=== PATIENT | male | born 1945 | race Caucasian/White ===

== ENCOUNTER 2017-03-03 09:34 | Outpatient (CLI) | payer MEDICARE, OTHER ==
[2017-03-03 18:37] LABS: BASOPHILS % (AUTO) 0.8 %; EOSINOPHILS # (AUTO) 0.2 10^3/uL (0.0-0.7); EOSINOPHILS % (AUTO) 3.1 %; HGB - HEMOGLOBIN 14.2 g/dL (14.0-18.0); LYMPHOCYTES # (AUTO) 1.6 10^3/uL (1.5-3.5); LYMPHOCYTES % (AUTO) 27.2 %; MEAN CORPUSCULAR HEMOGLOBIN 33.2 pg (27.0-31.0); MEAN CORPUSCULAR HGB CONC 33.9 g/dL (32.0-36.0); MEAN CORPUSCULAR VOLUME 97.9 fL (80.0-94.0); MEAN PLATELET VOLUME 9.7 fL (7.4-11.4); MONOCYTES # (AUTO) 0.4 10^3/uL (0.0-1.0); MONOCYTES % (AUTO) 7.2 %; NEUTROPHILS # (AUTO) 3.7 10^3/uL (1.5-6.6); NEUTROPHILS % (AUTO) 61.7 %; NUCLEATED RED BLOOD CELLS AUTO 0.1 /100WBC; RED BLOOD COUNT 4.29 10^6/uL (4.70-6.10)
[2017-03-03 19:05] LABS: ALBUMIN/GLOBULIN RATIO 1.4 (1.0-2.2); BILIRUBIN,TOTAL 0.7 mg/dL (0.2-1.0); BUN - BLOOD UREA NITROGEN 19 mg/dL (6-20); CALCIUM 9.3 mg/dL (8.5-10.3); CARBON DIOXIDE - CO2 27 mmol/L (21-32); CHLORIDE 108 mmol/L (101-111); CHOL/HDL RATIO 3.5 (<5.0); CHOLESTEROL 190 mg/dL; CREATININE 0.9 mg/dL (0.6-1.2); GFR - MDRD 84 (>89); GLUCOSE 112 mg/dL (70-100); HDL CHOLESTEROL 55 mg/dL; LDL/HDL RATIO 2.2 (<3.6); POTASSIUM 4.3 mmol/L (3.5-5.0); SODIUM 141 mmol/L (135-145); TOTAL PROTEIN 7.3 g/dL (6.7-8.2); TRIGLYCERIDES 77 mg/dL; VLDL CHOLESTEROL 15 mg/dL
== END 2017-03-03 09:35 | disposition home or self-care (01) ==
LOC: LAB.F 09:34
PROVIDERS: ATTEND Physician Assistant Medical
DX: I10 Essential (primary) hypertension (principal); Z12.5 Encounter for screening for malignant neoplasm of prostate; E55.9 Vitamin D deficiency, unspecified; E78.5 Hyperlipidemia, unspecified; K59.00 Constipation, unspecified; R13.10 Dysphagia, unspecified; R49.9 Unspecified voice and resonance disorder
CPT/HCPCS: 36415; 80053; 80061; 82306; 84443; 85025; G0103; 84153

== ENCOUNTER 2017-05-27 10:07 | Outpatient (CLI) | payer MEDICARE, OTHER ==
--- NOTE | 2017-05-27 10:48 | XRAY Report ---
MODIFIED BARIUM SWALLOW: 05/27/2017 CLINICAL INDICATION: Dysphagia. FINDINGS: Various consistencies of barium were prepared and administered in conjunction with Speech Pathology. There was no evidence of penetration or aspiration with any administered consistency. Pl ease also refer to full report from Speech Pathology. IMPRESSION: NO EVIDENCE OF PENETRATION OR ASPIRATION. FLUOROSCOPY TIME: 37 seconds; 1 spot image obtained (cinefluoroscopy recorded). JOB #: [id number] EXT JOB #:[id number]
== END 2017-05-27 10:08 | disposition home or self-care (01) ==
LOC: DI 10:07
PROVIDERS: ATTEND Otolaryngology
DX: K21.9 Gastro-esophageal reflux disease without esophagitis (principal); R13.10 Dysphagia, unspecified
CPT/HCPCS: 74230; 92611; G8996; G8997; G8998

== ENCOUNTER 2018-02-07 10:14 | Outpatient (CLI) | payer MEDICARE, OTHER ==
--- NOTE | 2018-02-07 11:50 | XRAY Report ---
Procedure Date: 02/07/2018 Accession Number: [id number] / [id number] Procedure: XR - Ankle 3 View RT CPT Code: FULL RESULT: EXAM: Ankle 3 View RT DATE: 02/07/2018 10:48 AM CLINICAL HISTORY: ANKLE JOINT PAIN,RIGHT COMPARISON: None. TECHNIQUE: 3 views. FINDINGS: Bones: Normal. No fractures or bone lesions. Joints: Mild degenerative changes in the mortise, with small osteophytes. No effusion. Soft Tissues: Normal. No soft tissue swelling. IMPRESSION: Mild degenerative changes. RADIA
== END 2018-02-07 10:15 | disposition home or self-care (01) ==
LOC: DI 10:14
PROVIDERS: ATTEND Internal Medicine
DX: M19.071 Primary osteoarthritis, right ankle and foot (principal)

== ENCOUNTER 2018-04-26 07:30 | Outpatient (CLI) | payer MEDICARE, OTHER ==
[2018-04-26 10:42] LABS: ALBUMIN/GLOBULIN RATIO 1.3 (1.0-2.2); BILIRUBIN,TOTAL 0.7 mg/dL (0.2-1.0); CALCIUM 8.8 mg/dL (8.5-10.3); CREATININE 0.8 mg/dL (0.6-1.2); TOTAL PROTEIN 7.1 g/dL (6.7-8.2)
== END 2018-04-26 07:31 | disposition home or self-care (01) ==
LOC: LAB.F 07:30
PROVIDERS: ATTEND Physician Assistant Medical
DX: I10 Essential (primary) hypertension (principal); Z12.5 Encounter for screening for malignant neoplasm of prostate
CPT/HCPCS: 36415; 80053; G0103; 84153

== ENCOUNTER 2019-08-16 08:07 | Outpatient (CLI) | payer MEDICARE, OTHER ==
[2019-08-16 10:09] LABS: BASOPHILS % (AUTO) 0.6 %; EOSINOPHILS # (AUTO) 0.3 10^3/uL (0.0-0.7); EOSINOPHILS % (AUTO) 4.6 %; HGB - HEMOGLOBIN 14.6 g/dL (14.0-18.0); LYMPHOCYTES # (AUTO) 1.9 10^3/uL (1.5-3.5); LYMPHOCYTES % (AUTO) 29.1 %; MEAN CORPUSCULAR HEMOGLOBIN 32.7 pg (27.0-31.0); MEAN CORPUSCULAR VOLUME 96.2 fL (80.0-94.0); MEAN PLATELET VOLUME 10.9 fL (7.4-11.4); MONOCYTES # (AUTO) 0.5 10^3/uL (0.0-1.0); MONOCYTES % (AUTO) 8.3 %; NEUTROPHILS # (AUTO) 3.7 10^3/uL (1.5-6.6); NEUTROPHILS % (AUTO) 57.2 %; PLT - PLATELET COUNT 271 10^3/uL (130-450); RED BLOOD COUNT 4.46 10^6/uL (4.70-6.10); RED CELL DISTRIBUTION WIDTH 13.4 % (12.0-15.0); WHITE BLOOD COUNT 6.5 x10^3/uL (4.8-10.8)
[2019-08-16 10:26] LABS: ALBUMIN 4.1 g/dL (3.2-5.5); ALBUMIN/GLOBULIN RATIO 1.2 (1.0-2.2); BILIRUBIN,TOTAL 0.7 mg/dL (0.2-1.0); CREATININE 0.9 mg/dL (0.6-1.2); TOTAL PROTEIN 7.5 g/dL (6.7-8.2)
== END 2019-08-16 08:08 | disposition home or self-care (01) ==
LOC: LAB.S 08:07
PROVIDERS: ATTEND Physician Assistant Medical
DX: Z51.81 Encounter for therapeutic drug level monitoring (principal); Z12.5 Encounter for screening for malignant neoplasm of prostate; Z79.899 Other long term (current) drug therapy
CPT/HCPCS: 36415; 80053; 85025; G0103; 84153

== ENCOUNTER 2019-08-28 08:04 | Outpatient (CLI) | payer MEDICARE, OTHER ==
[2019-08-28 19:30] LABS: HB2 TOTAL 13.7 g/dL; HEMOGLOBIN A1C 0.56 g/dL; HEMOGLOBIN A1C % 5.9 % (4.6-6.2)
== END 2019-08-28 08:05 | disposition home or self-care (01) ==
LOC: LAB.S 08:04
PROVIDERS: ATTEND Physician Assistant Medical
DX: R73.01 Impaired fasting glucose (principal)
CPT/HCPCS: 36415; 83036

== ENCOUNTER 2020-03-28 08:46 | Outpatient (CLI) | payer MEDICARE, OTHER ==
[2020-03-28 09:58] VITALS: BP 152/90
--- NOTE | 2020-03-28 09:58 | SLEEP CARE CONSULTATION ---
Information from patient questionnaire entered by Socorro Leavitt. I have reviewed and concur with the information entered by Socorro Leavitt. This document represents the service I personally performed and the decisions made by , Emily Singh ARNP. History of Present Illness Service Date and Time: 03/28/2020 0846 Reason for Visit: New patient, Previously diagnosed sleep apnea, sleep apnea on CPAP therapy Chief Complaint: reports: Other (Sleep apnea). denies: Insomnia, Unrefreshed sleep, Snoring, Excessive daytime sleepiness, Observed pauses in breathing, Fatigue, Frequent awakenings at night Date of Onset: 20 years +/- Usual bedtime: 10 pm Time it takes to fall asleep: 30 mins Snores at night: Yes (before or without CPAP) Observed to quit breathing while asleep: Yes Sleeps alone due to snoring: Yes Reasons for waking at night: denies: Choking, Snoring, Gasping for air Toss, Turn, or Twitch while sleeping: Yes Recalls having dreams: Yes Usually gets out of bed at: 6-6:30 am Feels refreshed in the morning: Yes Morning headache: No Sleepy or fatigued during the day: No Ever fallen asleep while driving: No Takes day naps: No Dreams during day naps: No Prior sleep studies: Yes Year and Where: 2004 - [facility] Additional HPI information: SHIMON PALACIOS was diagnosed to have very severe, AHI 84, obstructive sleep apnea- hypopnea syndrome and comes in today to establish care and for monitoring of his CPAP therapy. He has been on CPAP therapy since 2004 and does not sleep without it. He has had good improvement of his unrefreshed sleep and frequent night awakenings with use of the CPAP. - Parasomnia Symptoms Ever been unable to move upon waking from sleep: No Walks in sleep: No Talks in sleep: Yes Ever acted out dreams in sleep: No Ever felt weak in the knees when startled or emotional: No Bothered by creepy, crawly, restless sensations in legs: No Problems with memory or concentration: No CPAP Compliance Data - Data Reviewed with Patient Average duration of nightly device use: 7.7 Compliance rate %: 97.2 (180 days) Current pressure setting (cmH2O): 5-20 Humidity settin Average residual AHI: 6.1 Central apnea: 0.2 Obstructive apnea: 0.7 Average large leak: 45 min 42 sec Compliance data discussion: [employer], getting supplies as needed using full face Respironics has a spare mask, old mask last changed mask a week ago Subjective Patient concerns: denies: aerophagia, mask discomfort, air blowing in eyes, mask leak noise, condensation in mask/hose, nasal congestion, dry mouth, nose, throat, epistaxis, other Observed to snore while using device: No Current pressure setting perceived as: comfortable On therapy, patient: reports: sleeping better, awakening more refreshed, being more awake and alert during the day, more rested overall. denies: drowsiness while driving Initial [place] Sleepiness Scale score: 3 (in 2019) Past Medical History Past Medical History: reports: Hypertension, Arthritis, Impotence. denies: Congestive Heart Failure, Diabetes, Coronary Heart Disease, Gout, Arrythmia, Hypothyroidism, Anemia, Anxiety, Depression, Mood disorder, GERD, Attention deficit Social History The patient's occupation is a Retired. Patient is and lives in [place]. Have you smoked in the past 12 months: No Alcohol use: Yes Alcohol amount and frequency: 1-2 drinks a week Caffeine use: Yes Caffeine amount and frequency: 2-3 cups a day Family History Family history of sleep disordered breathing: Yes (mother and father) Family Hx Sleep Apnea: Mother: Snoring, Father: Snoring Allergies and Home Medications Drug allergies reviewed: Yes (NKDA) Home medication list reviewed: Yes Allergy and home medication list: tamsulosin HCL 0.4 mg capsule Lisinopril 20 mg tab Fiber capsules 3/day Toviaz ER 4 mg tab for prostate Metronidazole topical cream vitamin B1, B12, D3 Review of Systems Weight loss over past 5 years: 10 +/- Cardiovascular: reports: high blood pressure, leg or foot swelling. denies: palpitations, chest pain, irregular heart rate or pulse Respiratory: denies: shortness of breath, chronic cough Gastrointestinal: denies: heartburn, difficulty swallowing Urinary: reports: impotence Neurological: denies: headaches, seizure, head trauma, gait or balance problems Psychiatric: denies: anxiety, depression Ear/Nose/Throat: reports: nasal congestion, sinus problems, tonsillectomy. denies: nose bleeds, dry mouth/throat, hoarseness, injury to nose, wisdom teeth removed Endocrine: denies: thyroid disease Musculoskeletal: reports: joint pain, back pain Immunologic: reports: sneezing, allergies to food or environment (trees, grasses, pollens) Physical Exam Blood Pressure: 152/90 (usually elevated at doctor's office) Cuff size: long Heart Rate: 61 O2 Saturation: 97 Height: 5 ft 6.5 in Weight: 216 lb Body Mass Index: 34.3 BMI Classification: Obese HEENT: No craniofacial malformation Nostrils: patent to airflow Turbinates: normal Septum: midline Mouth and throat: narrow oropharynx Soft palate: normal Hard palate: normal Uvula: normal Uvula visualization: 50% Mallampati Class II Tongue: normal in size Tonsils: absent bilaterally Chin and jaw: normal size and position Neck: normal w/o lymphadenopathy or thyromegaly Heart: regular rate and rhythm Impression and Plan 1. Obstructive Sleep Apnea-Hypopnea Syndrome, very severe, with good treatment compliance and fair apnea control, but has elevated residual AHI. I discussed with patient that his AHI was elevated and we will adjust pressure to see if we can improve apnea control and have him follow up in a month and he agreed to plan. On CPAP therapy, there is improved sleep quality and feels more rested overall. Patient's apnea severity and rationale for treatment to reduce apnea, improve sleep quality and reduce cardiovascular and cerebrovascular events was reviewed. I also reviewed the benefit of consistent device use of CPAP for hypertension. Change auto CPAP pressure to 6-10 cm H2O. Notify me if snoring with the mask or feeling that the pressure is too much or too little. Attempt to lose weight. Return for follow-up in 1 month, or sooner if concerns arise. Visit Type: In Office Time Spent with Patient (minutes): 31 Provider Statement: I spent 100% of the Face to Face Visit with the patient with greater than 50% spent counseling the patient and coordination of care.
== END 2020-03-28 08:47 | disposition home or self-care (01) ==
LOC: SC 08:46
PROVIDERS: ATTEND Nurse Practitioner Family
DX: G47.33 Obstructive sleep apnea (adult) (pediatric) (principal); E66.9 Obesity, unspecified; Z68.34 Body mass index [BMI] 34.0-34.9, adult
CPT/HCPCS: 99204; G0463; 99212

== ENCOUNTER 2020-04-26 09:17 | Outpatient (CLI) | payer MEDICARE, OTHER | END 2020-04-26 09:18 | disposition home or self-care (01) | LOC: SC 09:17 | PROVIDERS: ATTEND Nurse Practitioner Family | DX: Z53.9 Procedure and treatment not carried out, unspecified reason (principal) ==

== ENCOUNTER 2020-05-09 09:19 | Outpatient (CLI) | payer MEDICARE, OTHER ==
--- NOTE | 2020-05-09 09:49 | SLEEP CARE CONSULTATION ---
Information from patient questionnaire entered by Socorro Leavitt. I have reviewed and concur with the information entered by Socorro Leavitt. This document represents the service I personally performed and the decisions made by , Emily Singh ARNP. History of Present Illness Service Date and Time: 05/09/2020918 Previous diagnosis: Very Severe, Obstructive Sleep Apnea-Hypopnea Syndrome AHI: 84 (in 2004) Reason for follow up: first compliance after device update Equipment type: CPAP Equipment obtained from: [employer] (getting supplies as needed) Mask style: Full face Mask brand: Respironics Backup mask available: Yes (old mask) Last cushion change: last week Prior sleep studies: Yes Year and Where: 2004 - [facility] HPI additional information: SHIMON PALACIOS was diagnosed to have very severe, AHI 84, obstructive sleep apnea- hypopnea syndrome and returned today for CPAP therapy first compliance after updating device follow-up. Sleep Study - Results Prior sleep studies: Yes Year and Where: 2004 [facility] CPAP Compliance Data - Data Reviewed with Patient Average duration of nightly device use: 8.5 Compliance rate %: 100 Current pressure setting (cmH2O): 4-20 Humidity settin Heated hose settin Average residual AHI: 4.7 Central apnea: 0.3 Obstructive apnea: 0.5 Average large leak: 17 min 6 sec Subjective Patient concerns: denies: aerophagia, mask discomfort, air blowing in eyes, mask leak noise, condensation in mask/hose, nasal congestion, dry mouth, nose, throat, epistaxis, other Observed to snore while using device: No Current pressure setting perceived as: comfortable On therapy, patient: reports: sleeping better, awakening more refreshed, being more awake and alert during the day, more rested overall. denies: drowsiness while driving Initial [place] Sleepiness Scale score: 3 (in 2019) Current [place] Sleepiness Scale score: 3 Allergies and Home Medications Drug allergies reviewed: Yes (NKDA) Home medication list reviewed: Yes (none) Review of Systems Review of systems same as previous: Yes (no changes) Physical Exam Heart Rate: 68 O2 Saturation: 98 Height: 5 ft 6.5 in Weight: 216 lb Body Mass Index: 34.3 BMI Classification: Obese Impression and Plan 1. Obstructive Sleep Apnea-Hypopnea Syndrome, very severe, with great treatment compliance and fair apnea control. On CPAP therapy, the patient has better sleep quality and is more rested overall. Patient has no complaints. He needs a compliance letter to [facility] for continuation of his supplies. I will adjust his pressure to 7-10 cm H2O since this is the range of pressures used per his report. Patient's apnea severity and rationale for treatment to reduce apnea, improve sleep quality and reduce cardiovascular and cerebrovascular events was reviewed. I also reviewed the benefit of consistent device use of CPAP for his hypertension. * Change autoCPAP pressure to 7-10 cmH2O * Notify me if snoring with mask or feeling that the pressure is too much or too little * Attempt to lose weight * Call this office if any problems using CPAP * Return for follow up in 1 year, or sooner if concerns arise Counseling Topics: Weight loss health impact Visit Type: In Office Time Spent with Patient (minutes): 20 Provider Statement: I spent 100% of the Face to Face Visit with the patient with greater than 50% spent counseling the patient and coordination of care.
== END 2020-05-09 09:20 | disposition home or self-care (01) ==
LOC: SC 09:19
PROVIDERS: ATTEND Nurse Practitioner Family
DX: G47.33 Obstructive sleep apnea (adult) (pediatric) (principal); E66.9 Obesity, unspecified; Z68.34 Body mass index [BMI] 34.0-34.9, adult
CPT/HCPCS: 99213; G0463; 99212

== ENCOUNTER 2020-09-26 07:56 | Outpatient (CLI) | payer MEDICARE, OTHER ==
[2020-09-26 14:59] LABS: HEMOGLOBIN A1c% 5.7 % (4.27-6.07)
[2020-09-26 15:02] LABS: BASOPHILS # (AUTO) 0.1 10^3/uL (0.0-0.1); BASOPHILS % (AUTO) 0.7 %; EOSINOPHILS # (AUTO) 0.3 10^3/uL (0.0-0.7); HGB - HEMOGLOBIN 14.6 g/dL (14.0-18.0); LYMPHOCYTES # (AUTO) 1.8 10^3/uL (1.5-3.5); LYMPHOCYTES % (AUTO) 26.5 %; MEAN CORPUSCULAR HGB CONC 33.3 g/dL (32.0-36.0); MEAN CORPUSCULAR VOLUME 98.9 fL (80.0-94.0); MEAN PLATELET VOLUME 11.8 fL (7.4-11.4); MONOCYTES # (AUTO) 0.6 10^3/uL (0.0-1.0); MONOCYTES % (AUTO) 8.3 %; NEUTROPHILS % (AUTO) 59.2 %; PLT - PLATELET COUNT 236 10^3/uL (130-450); RED BLOOD COUNT 4.43 10^6/uL (4.70-6.10); RED CELL DISTRIBUTION WIDTH 13.1 % (12.0-15.0); WHITE BLOOD COUNT 6.8 x10^3/uL (4.8-10.8)
[2020-09-26 15:34] LABS: ALBUMIN 4.2 g/dL (3.2-5.5); ALBUMIN/GLOBULIN RATIO 1.4 (1.0-2.2); ALKALINE PHOSPHATASE 64 IU/L (42-121); ALT ALANINE AMINOTRANSFERASE 21 IU/L (10-60); AST ASPARTATE AMINOTRANSFERASE 21 IU/L (10-42); BUN - BLOOD UREA NITROGEN 19 mg/dL (6-20); CALCIUM 9.3 mg/dL (8.5-10.3); CARBON DIOXIDE - CO2 25 mmol/L (21-32); CHLORIDE 106 mmol/L (101-111); CHOL/HDL RATIO 4.5 (<5.0); CHOLESTEROL 204 mg/dL; CREATININE 0.8 mg/dL (0.6-1.2); GLUCOSE 118 mg/dL (70-100); HDL CHOLESTEROL 45 mg/dL; LDL CHOLESTEROL,CALCULATED 140 mg/dL; LDL/HDL RATIO 3.1 (<3.6); TOTAL PROTEIN 7.3 g/dL (6.7-8.2); VLDL CHOLESTEROL 19 mg/dL
[2020-09-26 15:35] LABS: CREATININE,URINE 208.7 mg/dL; MICROALBUM/CREATININE RATIO,UR 3.4 ug/mg (<30.0); MICROALBUMIN,URINE 0.7 mg/dL (0-300.0)
== END 2020-09-26 07:57 | disposition home or self-care (01) ==
LOC: LAB 07:56
PROVIDERS: ATTEND Physician Assistant
DX: Z00.00 Encounter for general adult medical examination without abnormal findings (principal); Z12.5 Encounter for screening for malignant neoplasm of prostate; I10 Essential (primary) hypertension; R73.01 Impaired fasting glucose; R42 Dizziness and giddiness; G47.33 Obstructive sleep apnea (adult) (pediatric); E66.3 Overweight
CPT/HCPCS: 36415; 80053; 80061; 82043; 82570; 83036; 84443; 85025; G0103; 83721; 84153

== ENCOUNTER 2021-05-13 09:44 | Outpatient (CLI) | payer MEDICARE, OTHER ==
--- NOTE | 2021-05-13 10:30 | SLEEP CARE CONSULTATION ---
Information from patient questionnaire entered by Amanda Gerber. I have reviewed and concur with the information entered by Amanda Gerber. This document represents the service I personally performed and the decisions made by me, Emily Singh ARNP. History of Present Illness Service Date and Time: 05/13/2021 0944 Previous diagnosis: Very Severe, Obstructive Sleep Apnea-Hypopnea Syndrome AHI: 84 (in 2004) Reason for follow up: annual Equipment type: CPAP Equipment obtained from: [employer] (getting supplies as needed) Mask style: Full face Backup mask available: Yes (old mask) Last cushion change: 2 weeks ago Prior sleep studies: Yes Year and Where: 2004 [facility] Type of Sleep Study: Polysomnography HPI additional information: SHIMON PALACIOS was diagnosed to have very severe, AHI 84, obstructive sleep apnea- hypopnea syndrome and returned today for CPAP therapy annual follow-up. Sleep Study - Results Prior sleep studies: Yes Year and Where: 2004 [facility] CPAP Compliance Data - Data Reviewed with Patient Average duration of nightly device use: 7 hours 42 minutes Compliance rate %: 98.9 (data range 10/24/20-04/21/21) Current pressure setting (cmH2O): 4-11 Humidity settin Heated hose settin Average residual AHI: 10.4 Average large leak: 1 hour 8 minutes 43 seconds Subjective Missed days of use due to: reports: other (he is using old Remstar due to recall that is set to 12-13 cmH2O (maybe)) Patient concerns: reports: dry mouth, nose, throat, other (slight cough for last 6 months productive with some clear phlegm). denies: aerophagia, mask discomfort, air blowing in eyes, mask leak noise, condensation in mask/hose, nasal congestion, epistaxis Observed to snore while using device: No Current pressure setting perceived as: comfortable On therapy, patient: reports: sleeping better, awakening more refreshed, being more awake and alert during the day, more rested overall. denies: drowsiness while driving Initial [place] Sleepiness Scale score: 3 (in 2019) Current [place] Sleepiness Scale score: 2 Allergies and Home Medications Home medication list reviewed: Yes (no changes) Review of Systems Review of systems same as previous: Yes (no changes) Physical Exam Heart Rate: 68 O2 Saturation: 97 Height: 5 ft 6.5 in Weight: 211 lb Body Mass Index: 33.5 BMI Classification: Obese Impression and Plan 1. Obstructive Sleep Apnea-Hypopnea Syndrome, very severe, with good treatment compliance and fair apnea control. On CPAP therapy, the patient has better sleep quality and is more rested overall. Patient has a DreamStation that he has used an ozone millstone cleaner on. He states in the last 6 months he has had a cough that will not go away for which she has clear sputum. He switched to an older device that is a REMstar that he has never used the ozone millstone cleaner on because he felt safer in its use. He will continue to use this until he gets a new device. He thinks the device might be set to a 12-13 cmH2O but we were unable to get any download from this device since it has a credit card type memory card. Patient has already registered their device for the recall. Patient denies any black particles seen in machine or hoses, any unusual odors coming from device. Patient informed that they may use an inline CPAP filter that they can obtain online to reduce chance of any particles being inhaled or ingested. We discussed thoroughly the health risks of not using the CPAP versus continuing use with the filter in place. If patient is not able to sleep due to waking up choking, gasping for air or other respiratory distress that they may decide to continue using it until it is either replaced or repaired. Patient has an older device that they are now using until they get a new device to replace the Dreamstation. Patient was encouraged to lose weight for their overall health and to reduce apneas. Patient still concerned about the cough that has not changed since starting his use of the older CPAP. I encouraged him to follow-up with his PCP to evaluate this cough. Patient voiced understanding and agreement with plan. Patient's apnea severity and rationale for treatment to reduce apnea, improve sleep quality and reduce cardiovascular and cerebrovascular events was reviewed. I also reviewed the benefit of consistent device use of CPAP for hypertension. * Continue auto CPAP pressure at 4-11 cmH2O * Patient to follow up with PCP for productive cough * Notify me if snoring with mask or feeling that the pressure is too much or too little * Attempt to lose weight * Call this office if any problems using CPAP * Return for follow up in 1 year, or sooner if concerns arise Counseling Topics: Spare mask, Weight loss health impact Visit Type: In Office Time Spent with Patient (minutes): 24 Provider Statement: I spent 100% of the Face to Face Visit with the patient with greater than 50% spent counseling the patient and coordination of care.
== END 2021-05-13 09:45 | disposition home or self-care (01) ==
LOC: SC 09:44
PROVIDERS: ATTEND Nurse Practitioner Family
DX: G47.33 Obstructive sleep apnea (adult) (pediatric) (principal); E66.9 Obesity, unspecified; Z68.33 Body mass index [BMI] 33.0-33.9, adult
CPT/HCPCS: 99213; G0463; 99212

== ENCOUNTER 2021-09-25 07:47 | Outpatient (CLI) | payer MEDICARE, OTHER ==
[2021-09-25 14:52] LABS: BASOPHILS # (AUTO) 0.1 10^3/uL (0.0-0.1); BASOPHILS % (AUTO) 0.8 %; EOSINOPHILS # (AUTO) 0.3 10^3/uL (0.0-0.7); EOSINOPHILS % (AUTO) 5.1 %; HCT - HEMATOCRIT 43.3 % (42.0-52.0); HGB - HEMOGLOBIN 14.7 g/dL (14.0-18.0); LYMPHOCYTES % (AUTO) 33.1 %; MEAN CORPUSCULAR HEMOGLOBIN 33.3 pg (27.0-31.0); MEAN CORPUSCULAR HGB CONC 33.9 g/dL (32.0-36.0); MEAN CORPUSCULAR VOLUME 98.2 fL (80.0-94.0); MONOCYTES # (AUTO) 0.5 10^3/uL (0.0-1.0); MONOCYTES % (AUTO) 8.6 %; NEUTROPHILS # (AUTO) 3.1 10^3/uL (1.5-6.6); NEUTROPHILS % (AUTO) 52.2 %; PLT - PLATELET COUNT 245 10^3/uL (130-450); RED BLOOD COUNT 4.41 10^6/uL (4.70-6.10); WHITE BLOOD COUNT 5.9 x10^3/uL (4.8-10.8)
[2021-09-25 15:53] LABS: ALBUMIN/GLOBULIN RATIO 1.2 (1.0-2.2); ALKALINE PHOSPHATASE 67 IU/L (42-121); ALT ALANINE AMINOTRANSFERASE 29 IU/L (10-60); AST ASPARTATE AMINOTRANSFERASE 21 IU/L (10-42); BILIRUBIN,TOTAL 0.7 mg/dL (0.2-1.0); BUN - BLOOD UREA NITROGEN 22 mg/dL (6-20); CARBON DIOXIDE - CO2 23 mmol/L (21-32); CHLORIDE 108 mmol/L (101-111); CHOL/HDL RATIO 4.4 (<5.0); CHOLESTEROL 199 mg/dL; CREATININE 0.9 mg/dL (0.6-1.2); GFR - MDRD 83 (>89); GLUCOSE 118 mg/dL (70-100); HDL CHOLESTEROL 45 mg/dL; LDL CHOLESTEROL,CALCULATED 133 mg/dL; POTASSIUM 4.5 mmol/L (3.5-5.0); SODIUM 139 mmol/L (135-145); TOTAL PROTEIN 7.4 g/dL (6.7-8.2); TRIGLYCERIDES 106 mg/dL; VLDL CHOLESTEROL 21 mg/dL
== END 2021-09-25 07:48 | disposition home or self-care (01) ==
LOC: LAB.S 07:47
PROVIDERS: ATTEND Internal Medicine
DX: I10 Essential (primary) hypertension (principal); Z12.5 Encounter for screening for malignant neoplasm of prostate
CPT/HCPCS: 36415; 80053; 80061; 85025; G0103; 83721; 84153

== ENCOUNTER 2022-03-02 15:29 | Outpatient (CLI) | payer MEDICARE, OTHER ==
--- NOTE | 2022-03-02 17:18 | XRAY Report ---
PROCEDURE: Lumbar Spine 2 View INDICATIONS: BACK PAIN TECHNIQUE: 2 views of the lumbar spine were acquired. COMPARISON: None. FINDINGS: Bones: There appear to be 6 nonrib-bearing lumbar-type vertebral bodies present. For the purposes of this exam the most superior nonrib-bearing lumbar-type vertebral body is referred to as L1 and the mo st inferior is referred to as L6. Potentially the most superior nonrib-bearing lumbar-type vertebral body could have hypoplastic ribs. This could be further evaluated with CT if indicated. Mild left convexity curvature centered at L2-L3. Minimal multilevel listhesis, likely degenerative. T here is moderate-severe multilevel degenerative change present with disc height loss, endplate spurri ng, and facet arthropathy. Facet degenerative changes are most prevalent at the lower lumbar spine. N o vertebral body compression fractures. No suspicious bony lesions. Soft tissues: Overlying bowel gas pattern is normal. Vascular calcifications are present. IMPRESSION: 1. No acute lumbar spine fracture visualized radiographically. MRI could be obtained if clinically in dicated. 2. 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 3. Possible 6 nonrib-bearing lumbar-type vertebral bodies versus hypoplastic ribs at T12 which are no t easily visible. Careful attention to lumbar numbering is recommended if operative intervention is p lanned. CT of the lumbar spine could be helpful for clarification of spine numbering. Reviewed by: Paulo Lua MD on 03/02/2022 5:16 PM PDT Approved by: Paulo Lua MD on 03/02/2022 5:16 PM PDT Station ID: [id number]
== END 2022-03-02 15:30 | disposition home or self-care (01) ==
LOC: DI 15:29
PROVIDERS: ATTEND Internal Medicine
DX: M47.816 Spondylosis without myelopathy or radiculopathy, lumbar region (principal); M51.36 Other intervertebral disc degeneration, lumbar region

== ENCOUNTER 2022-06-17 11:07 | Outpatient (CLI) | payer MEDICARE, OTHER ==
[2022-06-17 11:34] VITALS: BP 138/82
--- NOTE | 2022-06-17 11:34 | SLEEP CARE CONSULTATION ---
Information from patient questionnaire entered by Taurus Beverly. I have reviewed and concur with the information entered by Taurus Beverly. This document represents the service I personally performed and the decisions made by me, Emily Singh ARNP. History of Present Illness Service Date and Time: 06/17/2022 1107 Previous diagnosis: Very Severe, Obstructive Sleep Apnea-Hypopnea Syndrome AHI: 84 (in 2004) Reason for follow up: annual (LAST SEEN 05/2021) Equipment type: CPAP (DREAMSTATION 2) Equipment obtained from: [employer] (getting supplies as needed) Mask style: Full face Backup mask available: Yes (old mask) Last cushion change: last week Prior sleep studies: Yes Year and Where: [address] [place] [address] Type of Sleep Study: Polysomnography HPI additional information: SHIMON PALACIOS was diagnosed to have very severe, AHI 84, obstructive sleep apnea- hypopnea syndrome and returned today for CPAP therapy annual follow-up. Sleep Study - Results Type of Sleep Study: Polysomnography Prior sleep studies: Yes Year and Where: [address] [place] [address] CPAP Compliance Data - Data Reviewed with Patient Average duration of nightly device use: 7 HRS, 31 MIN Compliance rate %: 97.2 (12/16/2021-06/13/2022; 175/180 days used) Current pressure setting (cmH2O): 4-11 (avg 9.6) Average residual AHI: 10.4 Central apnea: 1.5 Obstructive apnea: 1.6 Hypopnea: 7.3 Average large leak: 20 minutes 20 secs Subjective Patient concerns: denies: aerophagia, mask discomfort, air blowing in eyes, mask leak noise, condensation in mask/hose, nasal congestion, dry mouth, nose, throat, epistaxis Observed to snore while using device: No Current pressure setting perceived as: comfortable On therapy, patient: reports: sleeping better, awakening more refreshed, being more awake and alert during the day, more rested overall. denies: drowsiness while driving Initial [place] Sleepiness Scale score: 3 (in 2019) Current [place] Sleepiness Scale score: 5 (06/17/2022) Allergies and Home Medications Drug allergies reviewed: Yes (NKDA) Home medication list reviewed: Yes (no changes) Review of Systems Review of systems same as previous: No (spinal stenosis) Physical Exam Vital signs obtained and entered by: TAURUS Chan MA Blood Pressure: 138/82 Cuff size: regular Heart Rate: 85 O2 Saturation: 96 Height: 5 ft 6.5 in Weight: 213 lb Body Mass Index: 33.8 BMI Classification: Obese Impression and Plan 1. Obstructive Sleep Apnea-Hypopnea Syndrome, very severe, with good treatment compliance and fair apnea control with elevated residual AHI. On CPAP therapy, the patient has better sleep quality and is more rested overall. The patients pressure will be changed to autoCPAP 9-12 cmH20 for elevation of residual AHI. Patient advised to contact me if pressure change is uncomfortable so that it can be adjusted. Goals for apnea control discussed. Patient's apnea severity and rationale for treatment to reduce apnea, improve sleep quality and reduce cardiovascular and cerebrovascular events was reviewed. I also reviewed the benefit of consistent device use of CPAP for hypertension. 2. Obesity, unspecified. Currently patients BMI is 33.8. Obesity increases the risk of apnea, CPAP pressure requirements and overall health risks especially cardiovascular and diabetes. Thus patient is advised to continue to try to lose weight. Weight loss can be done with reducing portion size, reducing refined foods and balancing content with vegetables, fruit and whole grain foods. In addition, patient encouraged to get regular exercise. The patient's CPAP pressure range should accommodate some weight loss. Symptoms to report for additional pressure adjustment discussed. * Change autoCPAP pressure to 9-12 cmH2O * Update supplies * Notify me if snoring with mask or feeling that the pressure is too much or too little * Continue to try to lose weight * Call this office if any problems using CPAP * Return for follow up in 1 year, or sooner if concerns arise Counseling Topics: Spare mask, Weight loss health impact Visit Type: In Office Time Spent with Patient (minutes): 20 Provider Statement: I spent 100% of the Face to Face Visit with the patient with greater than 50% spent counseling the patient and coordination of care.
== END 2022-06-17 11:08 | disposition home or self-care (01) ==
LOC: SC 11:07
PROVIDERS: ATTEND Nurse Practitioner Family
DX: G47.33 Obstructive sleep apnea (adult) (pediatric) (principal); E66.9 Obesity, unspecified; Z68.33 Body mass index [BMI] 33.0-33.9, adult
CPT/HCPCS: 99213; G0463; 99212

== ENCOUNTER 2022-07-01 07:45 | Outpatient (CLI) | payer MEDICARE, OTHER ==
[2022-07-01 08:09] LABS: BASOPHILS # (AUTO) 0.1 10^3/uL (0.0-0.1); BASOPHILS % (AUTO) 0.8 %; EOSINOPHILS # (AUTO) 0.2 10^3/uL (0.0-0.7); EOSINOPHILS % (AUTO) 3.9 %; HGB - HEMOGLOBIN 14.7 g/dL (14.0-18.0); LYMPHOCYTES # (AUTO) 1.9 10^3/uL (1.5-3.5); LYMPHOCYTES % (AUTO) 31.2 %; MEAN CORPUSCULAR HEMOGLOBIN 31.8 pg (27.0-31.0); MEAN CORPUSCULAR HGB CONC 33.4 g/dL (32.0-36.0); MEAN CORPUSCULAR VOLUME 95.2 fL (80.0-94.0); MEAN PLATELET VOLUME 10.5 fL (7.4-11.4); MONOCYTES # (AUTO) 0.5 10^3/uL (0.0-1.0); MONOCYTES % (AUTO) 8.1 %; NEUTROPHILS # (AUTO) 3.3 10^3/uL (1.5-6.6); NEUTROPHILS % (AUTO) 55.8 %; PLT - PLATELET COUNT 239 10^3/uL (130-450); RED BLOOD COUNT 4.62 10^6/uL (4.70-6.10); RED CELL DISTRIBUTION WIDTH 13.2 % (12.0-15.0); WHITE BLOOD COUNT 5.9 x10^3/uL (4.8-10.8)
[2022-07-01 08:24] LABS: CALCIUM 9.4 mg/dL (8.5-10.3); CREATININE 0.9 mg/dL (0.6-1.2); POTASSIUM 4.4 mmol/L (3.5-5.0)
== END 2022-07-01 07:46 | disposition home or self-care (01) ==
LOC: LAB 07:45
PROVIDERS: ATTEND Orthopaedic Surgery Orthopaedic Surgery of the Spine
DX: Z01.818 Encounter for other preprocedural examination (principal)
CPT/HCPCS: 36415; 80048; 85025; 93005

== ENCOUNTER 2022-11-10 13:24 | Emergency (ER) | payer MEDICARE, OTHER ==
[2022-11-10] MEDS ORDERED: SODIUM CHLORIDE 0.9% 1,000 ML IV STA (14:03)
--- NOTE | 2022-11-10 14:05 | ED Physician Documentation ---
History of Present Illness - Stated complaint Stated Complaint: DIZZY/L HAND TINGLING - Chief complaint Chief Complaint: Neuro - History obtained from History obtained from: Patient - History of Present Illness Timing: Today Pain level max: 0 Pain level now: 0 - Additonal information Additional information: Patient is a 77-year-old male who presents to the emergency department stating that he felt lightheaded and like he was going to pass out about an hour prior to arrival. At that time he had tingling in his left fingers and tingling in his left foot. He states his symptoms have currently all resolved and he feels normal. He states last time he felt like this was when "they overdid it on my blood pressure medications" and his home economics expert stopped his blood pressure medications. He states he is currently just on Flomax and Detrol. No fevers. No chills. No headache. Currently not dizzy. Did not feel vertiginous or off- balance. No difficulty speaking, no word finding difficulties, no slurred speech. No facial droop. No facial numbness. There was no numbness or tingling in the remainder of the arm other than the fingertips and in the left foot, no tingling over the remainder of the leg either. Does not have any stroke or CVA history. Currently asymptomatic Review of Systems Constitutional: denies: Fever, Chills Eyes: denies: Decreased vision, Photophobia Nose: denies: Rhinorrhea / runny nose, Congestion Throat: denies: Sore throat Cardiac: denies: Chest pain / pressure Respiratory: denies: Cough GI: denies: Abdominal Pain, Nausea, Vomiting, Diarrhea : denies: Dysuria, Frequency, Hesitancy, Incontinent Skin: denies: Rash Musculoskeletal: denies: Neck pain, Back pain Neurologic: denies: Headache PD PAST MEDICAL HISTORY - Past Medical History Past Medical History: Yes Cardiovascular: Hypertension : Benign prostate hypertrophy - Present Medications Home Medications: Ambulatory Orders Medication Instructions Recorded Confirmed Home Medications Unobtainable 06/17/22 06/17/22 [HOME MEDICATIONS UNOBTAINABLE] - Allergies Allergies/Adverse Reactions: Allergies Allergy/AdvReac Type Severity Reaction Status Date / Time No Known Drug Allergies Allergy Verified 06/17/22 11:23 - Living Situation Living Arrangement: reports: At home - Social History Does the pt have substance abuse?: No - Family History Family history: reports: Non contributory PD ED PE NORMAL - Vitals Vital signs reviewed: Yes - General General: Alert and oriented X 3, No acute distress - HEENT HEENT: PERRL, Moist mucous membranes - Neck Neck: Supple, no meningeal sign - Cardiac Cardiac: RRR, Strong equal pulses - Respiratory Respiratory: No respiratory distress, Clear bilaterally - Abdomen Abdomen: Soft, Non tender, Non distended - Derm Derm: Warm and dry - Extremities Extremities: No edema - Neuro Neuro: Alert and oriented X 3 - Psych Psych: Normal mood, Normal affect Results - Vitals Vitals: Vital Signs - 24 hr 11/10/22 11/10/22 11/10/22 13:36 14:15 14:32 Temperature 36.9 C Heart Rate 77 73 67 Respiratory 16 19 18 Rate Blood Pressure 133/78 H 156/85 H 154/74 H O2 Saturation 99 99 96 11/10/22 11/10/22 15:16 15:50 Temperature Heart Rate 66 64 Respiratory 17 18 Rate Blood Pressure 175/90 H 173/96 H O2 Saturation 98 100 Oxygen O2 Source Room air - EKG (time done) 1414 EKG releavant findings:: EKG personally interpreted by author of this note. Relevant findings are: Rate: Rate (enter#) (73) Rhythm: NSR [place]: Normal Intervals: Normal [place] QRS: Normal, LVH Ischemia: Normal ST segments - Labs Labs: Laboratory Tests 11/10/22 11/10/22 11/10/22 14:15 14:15 14:15 WBC 6.6 RBC 4.39 L Hgb 14.1 Hct 42.3 MCV 96.4 H MCH 32.1 H MCHC 33.3 RDW 13.2 Plt Count 246 MPV 10.9 Neut # (Auto) 3.9 Lymph # (Auto) 2.0 Bibb # (Auto) 0.5 Eos # (Auto) 0.2 Baso # (Auto) 0.0 Absolute Nucleated RBC 0.00 Nucleated RBC % 0.0 Sodium 141 Potassium 4.1 Chloride 107 Carbon Dioxide 26 Anion Gap 8.0 BUN 21 H Creatinine 0.9 Estimated GFR (MDRD) 82 L Glucose 127 H Calcium 9.0 Phosphorus 4.0 Magnesium 1.9 Total Bilirubin 0.5 AST 17 ALT 19 Alkaline Phosphatase 74 Troponin I High Sens 6.4 Total Protein 6.9 Albumin 3.8 Globulin 3.1 Albumin/Globulin Ratio 1.2 Lipase 32 Urine Color Urine Clarity Urine pH Ur Specific [place] Urine Protein Urine Glucose (UA) Urine Ketones Urine Occult Blood Urine Nitrite Urine Bilirubin Urine Urobilinogen Ur Leukocyte Esterase Ur Microscopic Review Urine Culture Comments 11/10/22 14:57 WBC RBC Hgb Hct MCV MCH MCHC RDW Plt Count MPV Neut # (Auto) Lymph # (Auto) Bibb # (Auto) Eos # (Auto) Baso # (Auto) Absolute Nucleated RBC Nucleated RBC % Sodium Potassium Chloride Carbon Dioxide Anion Gap BUN Creatinine Estimated GFR (MDRD) Glucose Calcium Phosphorus Magnesium Total Bilirubin AST ALT Alkaline Phosphatase Troponin I High Sens Total Protein Albumin Globulin Albumin/Globulin Ratio Lipase Urine Color YELLOW Urine Clarity CLEAR Urine pH 6.0 Ur Specific [place] 1.010 Urine Protein NEGATIVE Urine Glucose (UA) NEGATIVE Urine Ketones NEGATIVE Urine Occult Blood NEGATIVE Urine Nitrite NEGATIVE Urine Bilirubin NEGATIVE Urine Urobilinogen 0.2 (NORMAL) Ur Leukocyte Esterase NEGATIVE Ur Microscopic Review NOT INDICATED Urine Culture Comments NOT INDICATED - Rads (name of study) head CTA Relevant Findings:: Final report received, See rad report neck CTA Relevant Findings:: Final report received, See rad report PD Medical Decision Making - ED course Complexity details: reviewed results, re-evaluated patient, considered differential, d/w patient ED course: 77-year-old male with lightheadedness and feeling like he was going to pass out earlier today. He had some tingling in his left fingers and left foot. Not consistent with stroke symptoms. Fully asymptomatic here. Feels better after IV fluids. CT angiogram head and neck did not show any acute abnormalities. CBC does not show any significant abnormalities. Chemistry does show an elevated BUN to creatinine ratio. Negative high-sensitivity troponin. Otherwise normal labs. Urinalysis is negative. We will have the patient's start on a daily aspirin and have him follow-up with his doctor for further care. His PCP may consider a brain MRI as outpatient. Patient counseled regarding signs and symptoms for which I believe and urgent re-evaluation would be necessary. Patient with good understanding of and agreement to plan and is c omfortable going home at this time This document was made in part using voice recognition software. While efforts are made to proofread this document, sound alike and grammatical errors may occur. Departure - Departure Disposition: 01 Home, Self Care Clinical Impression: Light-headed feeling, Paresthesia Condition: Good Instructions: ED Dizziness UKO, ED Paraesthesias Follow-Up: Ofelia Short MD [Primary Care Provider] - Within 1 week Comments: The cause of your symptoms is unclear today. Your head CT, CT angiogram of your head and neck are all without acute abnormality. Your symptoms have resolved. I would recommend that you follow-up with your doctor for further care. 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 Your doctor may want to perform a brain MRI as an outpatient as well. Please make sure you are drinking plenty of fluids. You should also start on a baby aspirin daily if you do not already take one. Discharge Date/Time: 11/10/22 15:58 NIHSS - Time Time: 14:06 - Level of Consciousness Level of consciousness: (0) Alert, Keenly responsive LOC Questions: (0) Answers both Q's correct LOC Commands: (0) Performs both correctly - Gaze Best Gaze: (0) Normal - Visual Visual: (0) No loss - Facial Palsy Facial Palsy: (0) Normal, symmetrical movement - Motor Arms (both separate) Motor Arm (right): (0) No drift Motor Arm (left): (0) No drift - Motor Legs (both separate) Motor Leg (right): (0) No drift Motor Leg (left): (0) No drift - Limb Ataxia Limb Ataxia: (0) Absent - Sensory Sensory: (0) Normal - Best Language Best Language: (0) No aphasia - Dysarthria Dysarthria: (0) Normal - Extinction and Inattention (formally neg Extinction and inattention: (0) No abnormality - Total Score/Results Total Score/Result: 0
--- OUTSIDE RECORDS SUMMARY | 2022-11-10 14:14 | EXTERNAL MEDICAL SUMMARY RPT | Continuity of Care Document ---
:1945 Author Organization [facility] Address [address] [place] [address] Phone Allergies No information. Encounters No information. Functional Status No information. Immunizations No information. Medications No information. Problems date description facility 2022-11-05 12:22 Pain in [facility] Procedures No information. Results/Labs test date author facility value unit interpret ation Result panel 1 (unknown) (no (unknown) (unknown) (no value) (units (unk nown) date) unknown) (unknown) (no (unknown) (unknown) 11/05/22 (units (unkno wn) date) unknown) (unknown) (no (unknown) (unknown) 1. (units (unkno wn) date) Full-thickness unknown) tear of the supraspinatus tendon at its attachment on the (unknown) (no (unknown) (unknown) [address] (units (unknown) date) unknown) (unknown) (no (unknown) (unknown) 2. Chronically (units (unknown) date) torn long head of unknown) the biceps tendon. (unknown) (no (unknown) (unknown) 3. Chronically (units (unknown) date) torn glenoid unknown) labrum. (unknown) (no (unknown) (unknown) 4. Moderate to (units (unknown) date) severe AC joint unknown) degenerative change. (unknown) (no (unknown) (unknown) [id number] (units (unkno wn) date) unknown) (unknown) (no (unknown) (unknown) 5. Moderate (units (un known) date) glenohumeral unknown) joint degenerative change. (unknown) (no (unknown) (unknown) 6. Small to (units (unk nown) date) moderate size unknown) shoulder joint effusion extending into the subacromial (unknown) (no (unknown) (unknown) 7. Fatty (units (unkno wn) date) infiltration of unknown) the muscle belly of the supraspinatus suggesting (unknown) (no (unknown) (unknown) 8. Debris (units (unkn own) date) present in the unknown) axillary pouch region suggesting small loose bodies. (unknown) (no (unknown) (unknown) Accession (units (unkn own) date) Number: unknown) [id number] (unknown) (no (unknown) (unknown) Age/Sex: 77 / M (units (unknown) date) Date of Service: unknown) (unknown) (no (unknown) (unknown) [place], [place] (units ( unknown) date) [id number] unknown) (unknown) (no (unknown) (unknown) Approved by: (units (u nknown) date) Juliocesar Clements unknown) Lui Rivas on 11/05/2022 at 17:09 (unknown) (no (unknown) (unknown) COMPARISON: (units (un known) date) None. unknown) (unknown) (no (unknown) (unknown) : 1945 (units (unknown) date) Acct:[id number] unknown) (unknown) (no (unknown) (unknown) Dictated by: (units (u nknown) date) Juliocesar Clements unknown) Lui Rivas on 11/05/2022 at 17:04 (unknown) (no (unknown) (unknown) FINDINGS: (units (unkn own) date) unknown) (unknown) (no (unknown) (unknown) IMPRESSION: (units (un known) date) unknown) (unknown) (no (unknown) (unknown) INDICATIONS: (units (u nknown) date) Pain in left unknown) shoulder (unknown) (no (unknown) (unknown) Image quality: (units (unknown) date) Excellent. unknown) (unknown) (no (unknown) (unknown) [facility] (units (unknown) date) unknown) (unknown) (no (unknown) (unknown) Loc: MRI (units (unkno wn) date) unknown) (unknown) (no (unknown) (unknown) MRI of the left (units (unknown) date) shoulder shows a unknown) full-thickness tear of the supraspinatus tendon (unknown) (no (unknown) (unknown) Magnetic (units (unkno wn) date) Resonance Report unknown) (unknown) (no (unknown) (unknown) Noncontrast (units (un known) date) oblique coronal unknown) T2 fast spin echo with fat saturation, oblique (unknown) (no (unknown) (unknown) Ordering (units (unkno wn) date) Provider: unknown) Ant Boyd MD (unknown) (no (unknown) (unknown) PROCEDURE: MR (units ( unknown) date) SHOULDER LT WO unknown) CON (unknown) (no (unknown) (unknown) Patient: (units (unkno wn) date) Addi Zendejas MR#: unknown) [id number] (unknown) (no (unknown) (unknown) Procedure: MR (units ( unknown) date) shoulder LT wo unknown) con (unknown) (no (unknown) (unknown) Signed (units (unkno wn) date) unknown) (unknown) (no (unknown) (unknown) TECHNIQUE: (units (unk nown) date) unknown) (unknown) (no (unknown) (unknown) The long head of (units (unknown) date) the biceps tendon unknown) appears chronically torn. (unknown) (no (unknown) (unknown) There appears to (units (unknown) date) be some debris unknown) present in the axillary pouch region. These (unknown) (no (unknown) (unknown) There is a (units (unk nown) date) chronically torn unknown) glenoid labrum. (unknown) (no (unknown) (unknown) There is a small (units (unknown) date) to moderate size unknown) shoulder joint effusion extending into the (unknown) (no (unknown) (unknown) There is (units (unkno wn) date) moderate to unknown) severe AC joint degenerative change present and moderate (unknown) (no (unknown) (unknown) approximately (units ( unknown) date) 2.5 centimeters unknown) of tendon retraction. There is fatty infiltration (unknown) (no (unknown) (unknown) echo with fat (units ( unknown) date) saturation unknown) through the shoulder. (unknown) (no (unknown) (unknown) fast spin (units (unkn own) date) unknown) (unknown) (no (unknown) (unknown) glenohumeral (units (u nknown) date) joint unknown) degenerative change. (unknown) (no (unknown) (unknown) greater (units (unkno wn) date) unknown) (unknown) (no (unknown) (unknown) likely (units (unkno wn) date) unknown) (unknown) (no (unknown) (unknown) longstanding (units (u nknown) date) unknown) (unknown) (no (unknown) (unknown) muscle belly of (units (unknown) date) the supraspinatus unknown) suggesting longstanding tear. (unknown) (no (unknown) (unknown) of the (units (unkno wn) date) unknown) (unknown) (no (unknown) (unknown) represent small (units (unknown) date) loose bodies. unknown) (unknown) (no (unknown) (unknown) sagittal T1 (units (un known) date) unknown) (unknown) (no (unknown) (unknown) spin echo and T2 (units (unknown) date) fast spin echo unknown) with fat saturation, axial T1 spin echo and T2 (unknown) (no (unknown) (unknown) subacromial (units (un known) date) unknown) (unknown) (no (unknown) (unknown) subdeltoid (units (unk nown) date) bursa. unknown) (unknown) (no (unknown) (unknown) tear. (units (unkno wn) date) unknown) (unknown) (no (unknown) (unknown) tuberosity with (units (unknown) date) approximately 2.5 unknown) centimeters of tendon retraction. (unknown) (no (unknown) (unknown) with (units (unkno wn) date) unknown) Social History No information. Vital Signs No information.
[2022-11-10 14:18] LABS: BASOPHILS % (AUTO) 0.6 %; EOSINOPHILS # (AUTO) 0.2 10^3/uL (0.0-0.7); EOSINOPHILS % (AUTO) 2.6 %; HCT - HEMATOCRIT 42.3 % (42.0-52.0); HGB - HEMOGLOBIN 14.1 g/dL (14.0-18.0); LYMPHOCYTES % (AUTO) 29.6 %; MEAN CORPUSCULAR HEMOGLOBIN 32.1 pg (27.0-31.0); MEAN CORPUSCULAR HGB CONC 33.3 g/dL (32.0-36.0); MEAN CORPUSCULAR VOLUME 96.4 fL (80.0-94.0); MEAN PLATELET VOLUME 10.9 fL (7.4-11.4); MONOCYTES # (AUTO) 0.5 10^3/uL (0.0-1.0); MONOCYTES % (AUTO) 7.7 %; NEUTROPHILS # (AUTO) 3.9 10^3/uL (1.5-6.6); NEUTROPHILS % (AUTO) 59.3 %; PLT - PLATELET COUNT 246 10^3/uL (130-450); RED BLOOD COUNT 4.39 10^6/uL (4.70-6.10); RED CELL DISTRIBUTION WIDTH 13.2 % (12.0-15.0); WHITE BLOOD COUNT 6.6 x10^3/uL (4.8-10.8)
[2022-11-10 14:32] LABS: ALBUMIN 3.8 g/dL (3.2-5.5); ALBUMIN/GLOBULIN RATIO 1.2 (1.0-2.2); BILIRUBIN,TOTAL 0.5 mg/dL (0.2-1.0); CREATININE 0.9 mg/dL (0.6-1.2); MAGNESIUM 1.9 mg/dL (1.7-2.8); POTASSIUM 4.1 mmol/L (3.5-5.0); TOTAL PROTEIN 6.9 g/dL (6.7-8.2)
[2022-11-10] MEDS ORDERED: iohexoL-300 100 ML VIAL ONE (14:35)
--- NOTE | 2022-11-10 14:48 | XRAY Report ---
PROCEDURE: Chest 1 View X-Ray INDICATIONS: Chest Pain TECHNIQUE: One view of the chest was acquired. COMPARISON: None. FINDINGS: Surgical changes and devices: None. Lungs and pleura: No pleural effusions or pneumothorax. Lungs are clear. Mediastinum: Mediastinal contours appear normal. Heart size is mildly enlarged. Bones and chest wall: No suspicious bony lesions. Overlying soft tissues appear unremarkable. IMPRESSION: No acute pulmonary process. Reviewed by: Marely Finnegan MD on 11/10/2022 2:47 PM PDT Approved by: Marely Finnegan MD on 11/10/2022 2:47 PM PDT Station ID: [id number]
[2022-11-10 15:07] LABS: BILIRUBIN,URINE NEGATIVE (NEGATIVE); GLUCOSE, URINE (UA) NEGATIVE (NEGATIVE); KETONES,URINE (UA) NEGATIVE (NEGATIVE); LEUKOCYTE ESTERASE, URINE NEGATIVE (NEGATIVE); NITRITE,URINE NEGATIVE (NEGATIVE); OCCULT BLOOD,URINE NEGATIVE (NEGATIVE); PROTEIN,URINE NEGATIVE (NEGATIVE); UROBILINOGEN,URINE 0.2 (NORMAL) E.U./dL (NORMAL)
[2022-11-10 15:25] LABS: CLARITY,URINE CLEAR (CLEAR)
--- NOTE | 2022-11-10 15:35 | CT Report ---
PROCEDURE: ANGIO HEAD W/WO INDICATIONS: L arm, leg paresthesia, lightheaded CONTRAST: 80ml Omnipaque 300 TECHNIQUE: Precontrast 4.5 mm thick angled axial sections acquired from the foramen magnum to the vertex. Afte r the administration of intravenous contrast, 1 mm thick sections acquired through the [place] of [place] is. Postcontrast 4.5 mm thick sections then re-acquired from the foramen magnum to the vertex. 3-di mensional deshovq-uqhfrvugs-syghdqznss (MIP) and/or volume rendering reformats were acquired of the c entral intracranial vasculature. For radiation dose reduction, the following was used: automated ex posure control, adjustment of mA and/or kV according to patient size. COMPARISON: None FINDINGS: Image quality: Excellent. Anterior circulation: Intracranial internal carotid arteries are normal in size and flow. The flow within the paired anterior cerebral arteries is normal and symmetric. The flow within the middle cer ebral arteries is normal and symmetric. The anterior communicating artery is seen. No aneurysms are seen. Posterior circulation: There is a slight right vertebral artery dominance. Visualized portions of th e vertebral arteries demonstrate normal caliber, and join to form a normal appearing basilar artery. Flow within the posterior cerebral arteries is normal and symmetric. No aneurysms are seen. There is persistence of posterior circulation on the right. The ventricular system and cortical sulci demonstrate atrophy, consistent for patient's stated age. There are areas of hypodensity in the periventricular and subcortical white matter. There is no acut e intra or extra-axial fluid collection. No acute hemorrhage, mass lesion or midline shift. Brainst em is unremarkable. Globes are symmetrical. Sinuses are aerated. Osseous structures are intact. IMPRESSION: 1. No acute intracranial process. 2. Moderate atrophy and chronic microvascular ischemic changes. 3. No areas of hemodynamically significant stenosis, vascular occlusion or aneurysmal dilation within the anterior or posterior circulation. Reviewed by: Marely Finnegan MD on 11/10/2022 3:33 PM PDT Approved by: Marely Finnegan MD on 11/10/2022 3:33 PM PDT Station ID: [id number]
--- NOTE | 2022-11-10 15:38 | CT Report ---
PROCEDURE: ANGIO NECK W INDICATIONS: L arm, leg paresthesia, lightheaded CONTRAST: 80ml Omnipaque 300 TECHNIQUE: After the administration of intravenous contrast, 1.5 mm axial sections acquired from the aortic arch to the [place] of [place]. Coronal 3-D maximum intensity projection (MIP) and/or volume rendering ref ormats were then performed. For radiation dose reduction, the following was used: automated exposur e control, adjustment of mA and/or kV according to patient size. COMPARISON: None. FINDINGS: Image quality: Excellent. 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 The origins of the common carotid arteries appear patent. The common carotid arteries demonstrate normal calibers and courses. The bifurcation regions appear normal bilaterally. The internal carotid arteries demonstrate luis f l caliber and course. Posterior circulation: There is approximately 50% narrowing at the origin of the left vertebral arter y. Right vertebral artery origin is widely patent. The more superior portions of the vertebral arteri es demonstrate normal course and caliber. They join to form a normal appearing basilar artery. Soft tissues: Visualized neck soft tissues demonstrate no suspicious abnormalities. The thyroid is normal in size and there are no incidental findings. Bones: No suspicious bony lesions. Visualized cervical spine appears normally aligned. IMPRESSION: 1. No acute intracranial process. 2. Moderate atrophy and chronic microvascular ischemic changes. 3. Approximate 50% narrowing at the origin of the left vertebral artery. The estimate of stenosis included in the report of the imaging study was calculated using the NASCET method CLINICAL RECOMMENDATION STATEMENTS: In patients <35 years with an ITN detected on CT, MRI, or extrathyroidal ultrasound, the Committee re commends further evaluation with dedicated thyroid ultrasound if the nodule is "e1 cm and has no susp icious imaging features, and if the patient has normal life expectancy. In patients "e35 years with an ITN detected on CT, MRI, or extrathyroidal ultrasound, the Committee r ecommends further evaluation with dedicated thyroid ultrasound if the nodule is "e1.5 cm and has no s uspicious imaging features, and if the patient has normal life expectancy. (ACR, 2014) Reviewed by: Marely Finnegan MD on 11/10/2022 3:37 PM PDT Approved by: Marely Finnegan MD on 11/10/2022 3:37 PM PDT Station ID: [id number]
[2022-11-10] MEDS ORDERED: ASPIRIN 325 MG TABLET PO STA (15:48)
[2022-11-10 15:51] VITALS: BP 173/96
[2022-11-10] MEDS ORDERED: iohexoL-300 100 ML VIAL IVP ONE (17:48)
== END 2022-11-10 15:58 | disposition home or self-care (01) ==
LOC: ED 13:24
DX: R55 Syncope and collapse (principal); R20.2 Paresthesia of skin; I65.02 Occlusion and stenosis of left vertebral artery
CPT/HCPCS: 36415; 70496; 70498; 71045; 80053; 81003; 83690; 83735; 84100; 84484; 85025; 93005; 99284; A9270; Q9967; 81001; 87086

== ENCOUNTER 2023-03-10 12:19 | Outpatient (CLI) | payer MEDICARE, OTHER | END 2023-03-10 12:20 | disposition home or self-care (01) | LOC: DI 12:19 | PROVIDERS: ATTEND Internal Medicine | DX: I48.91 Unspecified atrial fibrillation (principal); I51.7 Cardiomegaly | CPT/HCPCS: 93306 ==

== ENCOUNTER 2023-06-17 14:16 | Outpatient (CLI) | payer MEDICARE, OTHER ==
--- NOTE | 2023-06-17 14:49 | Sleep Patient Instructions ---
Sleep Center Visit Summary - Patient Visit Information Reason for Visit: Annual Visit - Patient Instructions Additional Instructions: You will continue with CPAP therapy with pressure set at 5-11 cmH2O. A supply prescription will be updated with your DME. We encourage you to continue to try to lose weight. Please follow up with the sleep care office in 1 year. - Clinic Information Contact: [facility] [address] [place] [address] [email or web address] T: [phone]
--- NOTE | 2023-06-17 14:54 | SLEEP CARE CONSULTATION ---
Information from patient questionnaire entered by Telma Beverly. I have reviewed and concur with the information entered by Telma Beverly. This document represents the service I personally performed and the decisions made by , Emily Singh ARNP. History of Present Illness Service Date and Time: 06/17/2023 1416 Previous diagnosis: Very Severe, Obstructive Sleep Apnea-Hypopnea Syndrome AHI: 84 (in 2004) Reason for follow up: annual (LAST SEEN 06/2022) Equipment type: CPAP (ResMed Airsense 10) Equipment obtained from: [facility] (getting supplies as needed) Mask style: Full face ([place], medium cushion) Backup mask available: Yes Last cushion change: 2 weeks Prior sleep studies: Yes Year and Where: [address] [place] [address] Type of Sleep Study: Polysomnography HPI additional information: SHIMON PALACIOS was diagnosed to have very severe, AHI 84, obstructive sleep apnea- hypopnea syndrome and returned today for CPAP therapy annual follow-up. Sleep Study - Results Type of Sleep Study: Polysomnography Prior sleep studies: Yes Year and Where: [address] [place] [address] CPAP Compliance Data - Data Reviewed with Patient Average duration of nightly device use: 6 hours 47 minutes Compliance rate %: 85 (02/18/2023 to 06/17/2023) Current pressure setting (cmH2O): 5-11 Average residual AHI: 2.7 Central apnea: 0.5 Obstructive apnea: 0.9 Hypopnea: 1.2 Average large leak: 4.4 L/min Compliance data discussion: Dreamstation 2: 02/27/2022 to 02/26/2023. 362/365 days used, 92.6% compliant, pressure set at 9-12 with average residual AHI of 7.8. Average large leak at 33 mins 27 secs. CA index 1.3, OA 0.9 and HI 5.6. Subjective Patient concerns: denies: aerophagia, mask discomfort, air blowing in eyes, mask leak noise, condensation in mask/hose, nasal congestion, dry mouth, nose, throat, epistaxis Observed to snore while using device: No Current pressure setting perceived as: comfortable On therapy, patient: reports: sleeping better, awakening more refreshed, being more awake and alert during the day, more rested overall. denies: drowsiness while driving Initial [place] Sleepiness Scale score: 3 (in 2019) Current [place] Sleepiness Scale score: 3 (06/16/2023) Allergies and Home Medications Known drug allergies: No Drug allergies reviewed: Yes Home medication list reviewed: Yes (Eliquis) Allergy and home medication list: Allergies No Known Drug Allergies Allergy (Verified 06/16/23 09:40) Review of Systems Review of systems same as previous: No (DISCFUSION LOWER BACK 06/2022) Physical Exam Vital signs obtained and entered by: TELMA Chan MA Blood Pressure: 110/78 (LEFT ARM) Cuff size: regular Heart Rate: 76 O2 Saturation: 97 Height: 5 ft 6 in Weight: 215 lb 9.6 oz Weight change since last visit: 2 lb gain Body Mass Index: 34.7 BMI Classification: Obese Impression and Plan 1. Obstructive Sleep Apnea-Hypopnea Syndrome, very severe, with good treatment compliance and fair apnea control with elevated residual AHI. On CPAP therapy, the patient has better sleep quality and is more rested overall. Patient states he was having trouble with his DreamStation 2 shutting off. His had a CPAP that she did not use and so he started using her CPAP around February 2023. He did not adjust any settings and is very comfortable with the settings on her machine which is 5-11 cmH2O. He also has very good control of sleep apnea with this setting. I will make no changes today and he will follow-up in a year. Patient's apnea severity and rationale for treatment to reduce apnea, improve sleep quality and reduce cardiovascular and cerebrovascular events was reviewed. I also reviewed the benefit of consistent device use of CPAP for hypertension. 2. Obesity, unspecified. Currently patients BMI is 34.7. Obesity increases the risk of apnea, CPAP pressure requirements and overall health risks especially cardiovascular and diabetes. Thus patient is advised to lose weight. * Continue auto CPAP pressure at 5-11 cmH2O * Update supply prescription * Notify me if snoring with mask or feeling that the pressure is too much or too little * Attempt to lose weight * Call this office if any problems using CPAP * Return for follow up in 1 year, or sooner if concerns arise Counseling Topics: Spare mask, Weight loss health impact Prescriptions: Device supplies Visit Type: In Office Time Spent with Patient (minutes): 33 Provider Statement: I spent 100% of the Face to Face Visit with the patient with greater than 50% spent counseling the patient and coordination of care.
[2023-06-17 14:58] VITALS: BP 110/78; O2SAT 97
== END 2023-06-17 14:17 | disposition home or self-care (01) ==
LOC: SC 14:16
PROVIDERS: ATTEND Nurse Practitioner Family
DX: G47.33 Obstructive sleep apnea (adult) (pediatric) (principal); E66.9 Obesity, unspecified; Z68.34 Body mass index [BMI] 34.0-34.9, adult
CPT/HCPCS: 99213; G0463; 99212

== ENCOUNTER 2023-12-15 12:03 | Outpatient (CLI) | payer MEDICARE, OTHER ==
--- NOTE | 2023-12-15 13:27 | Ultrasound Report ---
PROCEDURE: Duplex Ext Veins Right INDICATIONS: EDEMA, RIGHT LEG PAIN TECHNIQUE: Real-time imaging, as well as color and pulse Doppler interrogation, were performed of the lower extr emity deep veins from the inguinal ligament to the popliteal fossa. Attempted visualization of the ca lf veins was performed. COMPARISON: None. FINDINGS: The deep veins are normally compressible, and free of intraluminal thrombus. Color and pu lse Doppler demonstrate normal phasic intraluminal flow. There is normal augmentation response to di stal compression maneuver. IMPRESSION: No deep venous thrombosis of the right lower extremity. Reviewed by: Ehsan Galdamez MD on 12/15/2023 1:26 PM PDT Approved by: Ehsan Galdamez MD on 12/15/2023 1:26 PM PDT Station ID: [id number]
== END 2023-12-15 12:04 | disposition home or self-care (01) ==
LOC: DI 12:03
PROVIDERS: ATTEND Internal Medicine
DX: R60.9 Edema, unspecified (principal); M79.604 Pain in right leg